=== PATIENT | female | born 1940 | race Caucasian/White ===

== ENCOUNTER 2021-04-11 14:13 | Observation (INO) | payer OTHER ==
[~2021-04-11] VITALS: Ht 165.1 cm; Wt 85.8 kg
[2021-04-11 14:57] LABS: HEMOGLOBIN 13.4 gm/dl (12.3-15.3); RED BLOOD COUNT 4.49 M/UL (4.00-5.10); WHITE BLOOD COUNT 7.7 K/UL (4.5-11.0)
[2021-04-11] MEDS ORDERED: ASPIRIN CHEWABL81 MG PO (19:39)
[2021-04-11] MEDS ORDERED: ALDACTONE 25MG25 MG PO (19:39)
[2021-04-11] MEDS ORDERED: COZAAR25 MG PO (19:40)
[2021-04-11] MEDS ORDERED: TOPROL XL 25 MG25 MG PO (19:40)
[2021-04-12 05:18] LABS: RED BLOOD COUNT 4.1 M/UL (4.00-5.10); WHITE BLOOD COUNT 6.4 K/UL (4.5-11.0)
[2021-04-12 05:52] LABS: BUN/CREATININE RATIO 24 (0-10)
== END 2021-04-13 11:25 | disposition home or self-care (01) ==
LOC: ER1 14:13 → CDU 16:40 → PROG CARE 16:40
PROVIDERS: Emergency Medicine; Physician Assistant; ADMIT Internal Medicine
DX: I49.5 Sick sinus syndrome (principal); I25.10 Atherosclerotic heart disease of native coronary artery without angina pectoris; I10 Essential (primary) hypertension; I83.018 Varicose veins of right lower extremity with ulcer other part of lower leg; L97.819 Non-pressure chronic ulcer of other part of right lower leg with unspecified severity; Z20.822 Contact with and (suspected) exposure to COVID-19; Z95.5 Presence of coronary angioplasty implant and graft; Z91.013 Allergy to seafood; Z88.7 Allergy status to serum and vaccine; Z79.82 Long term (current) use of aspirin; Z79.899 Other long term (current) drug therapy
CPT/HCPCS: ECHO; 36415; 71045; 71046; 80048; 80053; 82550; 82553; 83735; 84100; 84439; 84443; 84484; 85025; 85610; 93005; 93306; 99285; G0378; U0002

== ENCOUNTER → 2021-07-01 | Outpatient (CLI) | payer OTHER ==
[~2021-07-01] MED LIST: ALDACTONE 25MG25 MG PO; ASPIRIN CHEWABL81 MG PO; COZAAR25 MG PO; ELIQUIS5 MG PO; HYDROCODON-ACE1 EAC4 PO; LEVOFLOXACIN500 MG PO; SOTALOL80 MG PO; TOPROL XL 25 MG25 MG PO
[2021-07-01 12:11] LABS: HEMOGLOBIN 13.8 gm/dl (12.3-15.3); RED BLOOD COUNT 4.97 M/UL (4.00-5.10); WHITE BLOOD COUNT 6.7 K/UL (4.5-11.0)
[2021-07-01 12:31] LABS: BUN/CREATININE RATIO 15 (0-10)
== END ==
LOC: LAB 11:41
PROVIDERS: Internal Medicine Cardiovascular Disease
DX: I25.10 Atherosclerotic heart disease of native coronary artery without angina pectoris (principal); I49.5 Sick sinus syndrome; I45.5 Other specified heart block
CPT/HCPCS: 36415; 71046; 80048; 85025

== ENCOUNTER 2021-07-05 10:01 | Outpatient (CLI) | payer OTHER ==
[~2021-07-05] VITALS: Ht 165.1 cm; Wt 86.2 kg
[~2021-07-05 10:01] MED LIST changes: -ELIQUIS5 MG PO; -HYDROCODON-ACE1 EAC4 PO; -LEVOFLOXACIN500 MG PO; -SOTALOL80 MG PO
[2021-07-05] MEDS ORDERED: ELIQUIS5 MG PO (10:32)
[2021-07-05] MEDS ORDERED: LEVOFLOXACIN500 MG PO (12:59)
[2021-07-05] MEDS ORDERED: HYDROCODON-ACE1 EAC4 PO (12:59)
[2021-07-05] MEDS ORDERED: SOTALOL80 MG PO (14:34)
== END 2021-07-06 08:46 | disposition home or self-care (01) ==
LOC: CATH 10:01 → M/S 15:07 → CATH 07-06 08:46
DX: I49.5 Sick sinus syndrome (principal); I45.5 Other specified heart block; I47.2 Ventricular tachycardia; I25.10 Atherosclerotic heart disease of native coronary artery without angina pectoris; I48.0 Paroxysmal atrial fibrillation; I10 Essential (primary) hypertension; M19.90 Unspecified osteoarthritis, unspecified site; Z79.82 Long term (current) use of aspirin; Z79.899 Other long term (current) drug therapy; Z82.49 Family history of ischemic heart disease and other diseases of the circulatory system
CPT/HCPCS: 33208; 93005; 99152; 99153; C1898; C2621; J1200; J1644; J2250; J2270; J3010; J3370; J7040; J7050; J7070